=== PATIENT | female | born 1985 | race Caucasian/White ===

== ENCOUNTER 2021-04-26 14:14 | Emergency (ER) | payer BC ==
[~2021-04-26] VITALS: Ht 160 cm; Wt 59.0 kg
[2021-04-26 14:22] VITALS: BP 106/64
--- NOTE | 2021-04-26 14:30 | NUR ---
Patient ambulated to bed 04 with steady/even gait.
--- NOTE | 2021-04-26 14:34 | NUR ---
Pt to restroom for urine sample, steady/even gait.
[2021-04-26] MEDS ORDERED: BACITRACIN OINT 500 UNITS/GM PKT TP ONE (14:35)
--- NOTE | 2021-04-26 14:40 | NUR ---
35 y/o F BIB self from home with c/c RLQ and suprapubic abdominal pain. Patient A&Ox4, ambulatory, reports abdominal pain, 7/10, pins & needles/dull, intermittent from LLQ to RLQ. Patient also reports nausea, dizziness, diarrhea, fatigue, headache for "1 to 2 weeks." Patient reports history of ovarian cyst, last Ultrasound completed 1 month ago, however, pt unable to recall results. Patient took Tylenol with minor relief. Pt reports hx of hyperthyroidism but does not take any medications for it. Last BM: today, diarrhea. Bowel sounds normoactive x 4 quads. Pt denies SOB, chest pain, urinary symptoms, dysuria. Pt placed into a gown and radiation monitor; VSS; respirations even/unlabored. Bed locked in lowest position, side rails x 1, call light in reach. PMH/Meds: Ovarian cyst, gallstones, hyperthyroidism NKA
--- NOTE | 2021-04-26 14:42 | NUR ---
DR BARGER BEDSIDE EVALUATING PT
[2021-04-26] MEDS ORDERED: NACL 0.9% 1,000 ML IV SCH (14:50)
[2021-04-26] MEDS ORDERED: ONDANSETRON 4 MG/2 ML VIAL IVP ONE (14:50)
[2021-04-26] MEDS ORDERED: ALUMINUM HYD/MAG/SIMETHICONE 30 ML, DICYCLOMINE HCL LIQUID 20 MG, LIDOCAINE VISCOUS 2% ... PO ONE ×3 (14:50)
[2021-04-26] MEDS ORDERED: KETOROLAC 30 MG/ML VIAL IVP ONE (14:50)
--- NOTE | 2021-04-26 15:06 | NUR ---
BLOOD COLLECTED BEDSIDE AND WALKED OVER TO LAB
[2021-04-26 15:12] LABS: BASOPHILS % (AUTO) 0.6 % (0.0-2.0); EOSINOPHILS % (AUTO) 0.6 % (0.0-4.0); HEMATOCRIT 36.7 % (36-48); HEMOGLOBIN 12.5 g/dL (12.0-16.0); LYMPHOCYTES # (AUTO) 1.8 K/uL (2.5-16.5); LYMPHOCYTES % (AUTO) 29.3 % (20.5-51.1); MEAN CORPUSCULAR HEMOGLOBIN 31 pg (27-31); MEAN CORPUSCULAR HGB CONC 34 g/dL (33-37); MEAN CORPUSCULAR VOLUME 89.8 fL (80-94); MONOCYTES # (AUTO) 0.4 K/uL (0.8-1.0); MONOCYTES % (AUTO) 7.1 % (1.7-9.3); NEUTROPHILS # (AUTO) 3.8 K/uL (1.8-7.7); NEUTROPHILS % (AUTO) 62.4 % (42.2-75.2); PLATELET COUNT (AUTO) 232 K/uL (140-450); RED BLOOD CELL COUNT(AUTO) 4.08 MIL/uL (4.20-5.40); RED CELL DISTRIBUTION WIDTH 13.4 % (11.6-13.7); WHITE BLOOD COUNT (AUTO) 6.1 K/uL (4.8-10.8)
[2021-04-26 15:39] LABS: ALBUMIN 4.1 g/dL (3.4-5.0); ANION GAP 10.8 (8-16); CARBON DIOXIDE 27.9 mmol/L (21-32); CREATININE 0.7 mg/dL (0.6-1.3); FREE T4 (FREE THYROXINE) 0.79 ng/dL (0.76-1.46); POTASSIUM 3.7 mmol/L (3.5-5.1); THYROID STIMULATING HORMONE 1.18 uIU/mL (0.34-3.74); TOTAL BILIRUBIN 0.5 mg/dL (0.0-1.0)
--- NOTE | 2021-04-26 15:55 | NUR ---
Patient resting in position of comfort. monitor and storage bin tender in place. VSS; respirations even/unlabored. Bed locked in lowest position, side rails x 1, call light in reach.
[2021-04-26 16:00] VITALS: BP 164/56
[2021-04-26] MEDS ORDERED: ONDA-24 SL (16:35)
[2021-04-26] MEDS ORDERED: IBUP-2213 PO (16:35)
--- NOTE | 2021-04-26 16:50 | NUR ---
Patient discharged with v/s stable. Written and verbal after care instructions given and explained. Patient alert, oriented and verbalized understanding of instructions. Ambulatory with steady gait. All questions addressed prior to discharge. ID band removed. Patient advised to follow up with PMD. Rx of Ibuprofen, Ondansetron given. Patient educated on indication of medication including possible reaction and side effects. Opportunity to ask questions provided and answered.
== END 2021-04-26 16:50 | disposition home or self-care (01) ==
LOC: MED 14:14
DX: R10.2 Pelvic and perineal pain (principal); R53.83 Other fatigue; E05.90 Thyrotoxicosis, unspecified without thyrotoxic crisis or storm; Z79.1 Long term (current) use of non-steroidal anti-inflammatories (NSAID); Z79.899 Other long term (current) drug therapy
CPT/HCPCS: 36415; 76856; 80053; 81002; 81025; 83690; 84439; 84443; 85025; 96360; 99284; J7030

== ENCOUNTER 2021-10-22 23:45 | Emergency (ER) | payer BC, OTHER ==
[~2021-10-22] VITALS: Ht 160 cm; Wt 55.8 kg
[~2021-10-22 23:45] MED LIST: IBUP-2213 PO; ONDA-188 SL
[2021-10-22 23:51] VITALS: BP 100/57
[2021-10-23 00:23] LABS: APPEARANCE,URINE CLEAR (CLEAR); BILIRUBIN,URINE NEGATIVE (NEGATIVE); BLOOD, URINE 1+ (NEGATIVE); COLOR,URINE YELLOW (YELLOW); LEUKOCYTE ESTERASE ,URINE NEGATIVE (NEGATIVE); NITRITE, URINE NEGATIVE (NEGATIVE); UGLUCOSE NEGATIVE (NEGATIVE)
[2021-10-23 00:32] LABS: RBC,URINE 0-5 /HPF (0-5); WBC,URINE 0-5 /HPF (0-5)
[2021-10-23] MEDS ORDERED: ONDANSETRON 4 MG ODT PO ONE (02:10)
[2021-10-23] MEDS ORDERED: KETOROLAC 15 MG/ML VIAL IM ONE (02:10)
--- NOTE | 2021-10-23 02:11 | NUR ---
PT AMBULATED TO BED #3
--- NOTE | 2021-10-23 02:20 | NUR ---
PATIENT REFUSED MEDICATIONS- ERMD MADE AWARE
[2021-10-23 02:23] LABS: BASOPHILS % (AUTO) 0.4 % (0.0-2.0); EOSINOPHILS # (AUTO) 0.1 K/uL (0-0.4); EOSINOPHILS % (AUTO) 0.8 % (0.0-4.0); HEMATOCRIT 33.5 % (36-48); HEMOGLOBIN 11.3 g/dL (12.0-16.0); LYMPHOCYTES % (AUTO) 23.6 % (20.5-51.1); MEAN CORPUSCULAR HEMOGLOBIN 30 pg (27-31); MEAN CORPUSCULAR HGB CONC 34 g/dL (33-37); MEAN CORPUSCULAR VOLUME 90.3 fL (80-94); MONOCYTES # (AUTO) 0.6 K/uL (0.8-1.0); MONOCYTES % (AUTO) 6.9 % (1.7-9.3); NEUTROPHILS # (AUTO) 5.7 K/uL (1.8-7.7); NEUTROPHILS % (AUTO) 68.3 % (42.2-75.2); PLATELET COUNT (AUTO) 231 K/uL (140-450); RED BLOOD CELL COUNT(AUTO) 3.71 MIL/uL (4.20-5.40); WHITE BLOOD COUNT (AUTO) 8.3 K/uL (4.8-10.8)
[2021-10-23 02:35] LABS: ANION GAP 10.7 (8-16); CREATININE 0.6 mg/dL (0.6-1.3); POTASSIUM 3.7 mmol/L (3.5-5.1)
[2021-10-23 02:39] LABS: BILIRUBIN,DIRECT 0.1 mg/dL (0.0-0.3); TOTAL BILIRUBIN 0.3 mg/dL (0.0-1.0)
--- NOTE | 2021-10-23 03:12 | NUR ---
Ultrasound at bedside.
[2021-10-23] MEDS ORDERED: IBUP-1842 PO (04:12)
--- NOTE | 2021-10-23 04:28 | NUR ---
Patient appears to be resting comfortably in bed- Semi fowlers and with eyes closed. Vital Signs within normal limits. Respirations even and unlabored. Safety measures are in place and will continue to monitor patient.
[2021-10-23 04:49] VITALS: BP 100/57
== END 2021-10-23 04:49 | disposition home or self-care (01) ==
LOC: MED 23:45
DX: K80.20 Calculus of gallbladder without cholecystitis without obstruction (principal); R11.0 Nausea; E05.90 Thyrotoxicosis, unspecified without thyrotoxic crisis or storm; Z79.899 Other long term (current) drug therapy
CPT/HCPCS: 36415; 76705; 80048; 80076; 81001; 81025; 83690; 85025; 99284; Q0092; Q0162; J1885

== ENCOUNTER 2022-01-22 21:10 | Emergency (ER) | payer OTHER ==
[~2022-01-22] VITALS: Ht 160 cm; Wt 54.9 kg
[~2022-01-22 21:10] MED LIST changes: +IBUP-1842 PO
[2022-01-22 21:31] VITALS: BP 98/50
--- NOTE | 2022-01-22 23:19 | NUR ---
pt called from inside lobby and outside, no response.
--- NOTE | 2022-01-22 23:26 | NUR ---
Called second time- no show in Lobby.
--- NOTE | 2022-01-22 23:40 | NUR ---
PATIENT LEFT WITHOUT BEING SEEN BY DR. Olivo. NO FURTHER CARE PROVIDED FOR PATIENT.
--- NOTE | 2022-01-22 23:40 | NUR ---
Called third time-no show in [place]
== END 2022-01-22 23:40 | disposition left against medical advice (07) ==
LOC: MED 21:10
DX: R10.9 Unspecified abdominal pain (principal); R50.9 Fever, unspecified; R19.7 Diarrhea, unspecified; R53.1 Weakness; R42 Dizziness and giddiness; Z53.21 Procedure and treatment not carried out due to patient leaving prior to being seen by health care provider